=== PATIENT | female | born 1955 | race Caucasian/White ===

== ENCOUNTER 2018-02-09 08:39 | Emergency (ER) | payer MEDICAID ==
[~2018-02-09 08:39] MED LIST: ALBU8HFA PO; AMIT-50 PO; CHLO25CA10 PO; DULO-31 PO; HYDR1TAB PO; LOPE2CAP PO; ONDA4TAB6 PO; PANT40TA39 PO; SUCR1TAB28 PO
[2018-02-09] MEDS ORDERED: normal saline 1000ML IV soln IVB ONE (09:00)
[2018-02-09 09:31] LABS: BASOPHILS % (AUTO) 0.5 % (0-1); EOSINOPHILS # (AUTO) 0.1 X10'3 (0-0.9); EOSINOPHILS % (AUTO) 3.1 % (0-6); HEMATOCRIT 46.4 % (35.0-45.0); HEMOGLOBIN 15.6 g/dl (12.0-16.0); LYMPHOCYTES # (AUTO) 1.1 X10'3 (1.1-4.8); LYMPHOCYTES % (AUTO) 36.5 % (21-51); MEAN CORPUSCULAR HEMOGLOBIN 35.3 PG (27.0-31.0); MEAN CORPUSCULAR HGB CONC 33.7 % (33.0-36.5); MEAN CORPUSCULAR VOLUME 104.9 FL (78-98); MEAN PLATELET VOLUME 7.6 FL (7.4-10.4); MONOCYTES # (AUTO) 0.2 X10'3 (0-0.9); MONOCYTES % (AUTO) 7.3 % (2-12); NEUTROPHILS # (AUTO) 1.6 X10'3 (1.8-7.7); NEUTROPHILS % (AUTO) 52.6 % (42-75); PLATELET COUNT 105 X10'3 (140-440); RED BLOOD COUNT 4.43 X10'6 (4.20-5.60); RED CELL DISTRIBUTION WIDTH 15.6 % (11.5-14.5); WHITE BLOOD COUNT 3.1 X10'3 (4.5-11.0)
[2018-02-09 09:42] LABS: ALANINE AMINOTRANSFERASE 125 U/L (12-78); ALBUMIN 4.1 G/DL (3.4-5.0); ALBUMIN/GLOBULIN RATIO 1.2 (1.1-1.5); ALKALINE PHOSPHATASE 56 IU/L (46-116); ANION GAP 17 (8-16); ASPARTATE AMINO TRANSFERASE 150 U/L (10-37); BILIRUBIN,TOTAL 0.3 MG/DL (0.1-1.0); BLOOD UREA NITROGEN 16 MG/DL (7-18); BUN/CREATININE RATIO 28.6 (6.6-38.0); CALCIUM 8.7 MG/DL (8.5-10.1); CHLORIDE 107 MMOL/L (99-107); CREATININE 0.56 MG/DL (0.40-0.90); GLUCOSE 77 MG/DL (70-104); POTASSIUM 3.6 MMOL/L (3.5-5.1); SODIUM 145 MMOL/L (135-145); TOTAL CARBON DIOXIDE 21.2 MMOL/L (24-32); TOTAL PROTEIN 7.5 G/DL (6.4-8.2); eGFR > 90 ML/MIN
[2018-02-09 09:48] LABS: MAGNESIUM 1.9 MG/DL (1.5-2.4)
[2018-02-09 09:58] LABS: CLARITY,URINE CLEAR (Clear); COLOR,URINE YELLOW (Yellow); GLUCOSE, URINE NEGATIVE (Neg); KETONES,URINE TRACE mg/dl (Neg); LEUKOCYTE ESTERASE ,URINE NEGATIVE (Neg); NITRITES, URINE NEGATIVE (Neg); OCCULT BLOOD,URINE NEGATIVE (Neg); PROTEIN,URINE 30 mg/dl (Neg); UROBILINOGEN,URINE 0.2 E.U/dL (0.2-1.0)
[2018-02-09 10:07] VITALS: BP 114/86
[2018-02-09 10:14] LABS: UA COLLECTION TYPE CLN CATCH MIDSTREAM
[2018-02-09 10:16] LABS: BACTERIA,URINE NONE SEEN /HPF (Neg); MUCUS STRANDS NONE SEEN /LPF (Neg); RBC,URINE NONE SEEN /HPF (0-2); SQUAMOUS EPITHELIAL CELL,UR MODERATE /LPF (FEW); WBC,URINE 0-4 /HPF (0-4)
[2018-02-09 10:23] LABS: ETHANOL 0.309 GM/DL (0.0-0.010)
== END 2018-02-09 10:41 | disposition home or self-care (01) ==
LOC: ER 08:40
DX: E86.0 Dehydration (principal); F10.129 Alcohol abuse with intoxication, unspecified; R53.1 Weakness; Z56.0 Unemployment, unspecified; Z86.73 Personal history of transient ischemic attack (TIA), and cerebral infarction without residual deficits; Z88.2 Allergy status to sulfonamides; Z88.8 Allergy status to other drugs, medicaments and biological substances; Z79.899 Other long term (current) drug therapy; Y90.0 Blood alcohol level of less than 20 mg/100 ml
CPT/HCPCS: 36415; 71045; 80053; 80320; 81001; 83735; 83880; 84484; 85025; 93005; 96360; 99284; J7030

== ENCOUNTER 2018-05-24 11:35 | Emergency (ER) | payer MEDICAID ==
[~2018-05-24] VITALS: Ht 162.6 cm; Wt 47.0 kg
[2018-05-24] MEDS ORDERED: normal saline 1000ml 1,000 ML IV ONE ×3 (12:20→14:55)
--- NOTE | 2018-05-24 12:37 | NUR ---
pt to CT
--- NOTE | 2018-05-24 12:45 | NUR ---
Received call from Dr. Muñiz in regards to home health services, [facility], [facility] or [facility], patient does not have primary physician explained home health would not be an option, will speak with patient and family at bedside
--- NOTE | 2018-05-24 12:57 | NUR ---
getachew with case management was at bedside with pt, pt and friends refusing all services/info employment case manager offered pt, Dr Muñiz aware
[2018-05-24 13:01] LABS: BASOPHILS % (AUTO) 1.3 % (0-1); EOSINOPHILS # (AUTO) 0.1 X10'3 (0-0.9); EOSINOPHILS % (AUTO) 4.5 % (0-6); HEMATOCRIT 39.8 % (35.0-45.0); HEMOGLOBIN 13.3 g/dl (12.0-16.0); LYMPHOCYTES % (AUTO) 37.9 % (21-51); MEAN CORPUSCULAR HEMOGLOBIN 35.5 PG (27.0-31.0); MEAN CORPUSCULAR HGB CONC 33.5 g/dL (33.0-36.5); MEAN CORPUSCULAR VOLUME 105.9 FL (78-98); MEAN PLATELET VOLUME 7.1 FL (7.4-10.4); MONOCYTES # (AUTO) 0.4 X10'3 (0-0.9); MONOCYTES % (AUTO) 15.5 % (2-12); NEUTROPHILS # (AUTO) 1.1 X10'3 (1.8-7.7); NEUTROPHILS % (AUTO) 40.8 % (42-75); PLATELET COUNT 90 X10'3 (140-440); RED BLOOD COUNT 3.76 X10'6 (4.20-5.60); RED CELL DISTRIBUTION WIDTH 17.3 % (11.5-14.5); WHITE BLOOD COUNT 2.7 X10'3 (4.5-11.0)
--- NOTE | 2018-05-24 13:06 | NUR ---
PT IS SITTING UP ON EDGE OF BED, ALERT AND ORIENTED X3, WOULD LIKE TO EAT AND GO HOME, PT IS RECEIVING 1ST LITER NS W/O, UNABLE TO GIVE UA AT THIS TIME
[2018-05-24 13:12] LABS: INR 0.9 INR; PROTHROMBIN TIME 9.5 SECONDS (9.0-12.0)
[2018-05-24 13:16] LABS: ALANINE AMINOTRANSFERASE 83 U/L (12-78); ALBUMIN 3.5 G/DL (3.4-5.0); ALBUMIN/GLOBULIN RATIO 1.2 (1.1-1.5); ALKALINE PHOSPHATASE 76 IU/L (46-116); ANION GAP 9 (8-16); ASPARTATE AMINO TRANSFERASE 86 U/L (10-37); BILIRUBIN,TOTAL 0.2 MG/DL (0.1-1.0); BLOOD UREA NITROGEN 15 MG/DL (7-18); BUN/CREATININE RATIO 23.1 (6.6-38.0); CALCIUM 8.2 MG/DL (8.5-10.1); CHLORIDE 105 MMOL/L (99-107); CREATININE 0.65 MG/DL (0.40-0.90); GLUCOSE 71 MG/DL (70-104); POTASSIUM 3.5 MMOL/L (3.5-5.1); SODIUM 141 MMOL/L (135-145); TOTAL CARBON DIOXIDE 26.7 MMOL/L (24-32); TOTAL PROTEIN 6.4 G/DL (6.4-8.2); eGFR > 90 ML/MIN
--- NOTE | 2018-05-24 13:22 | NUR ---
Meet with patient and family, states that she was not interested in home health services, friends at bedside said that they all 3 take care of each other and have not benefited from home health in the past, offered a list of facilities that can provide bed bug exterminator care and other non medical agencies that can provide help with basic needs, house cleaning and meals, patient and two friends state they already take care of this and declined information
[2018-05-24 13:24] LABS: MAGNESIUM 1.7 MG/DL (1.5-2.4); PHOSPHORUS 3.7 MG/DL (2.3-4.5)
[2018-05-24 13:25] LABS: ETHANOL 0.352 GM/DL (0.0-0.010)
[2018-05-24] MEDS ORDERED: ondansetron/PF 4mg/2ml inj IV ONE (13:35)
[2018-05-24] MEDS ORDERED: cyanocobalamin 1,000 mcg/ml inj IM ONE (13:40)
[2018-05-24] MEDS ORDERED: thiamine 100mg/ml 2ml inj. IV ONE (13:40)
--- NOTE | 2018-05-24 15:00 | NUR ---
PT AGREED TO HAVE IN AND OUT CATH DONE SHE FEELS NO NEED TO URINATE, DR OLIVARES AWARE
--- NOTE | 2018-05-24 15:30 | NUR ---
PT HAS BEEN EDUCATED ALCOHOLISM, SHE VERBALIZED SHE DOES "DRINK TOO MUCH"
[2018-05-24 15:32] LABS: CLARITY,URINE CLEAR (Clear); COLOR,URINE YELLOW (Yellow); GLUCOSE, URINE NEGATIVE (Neg); KETONES,URINE NEGATIVE (Neg); LEUKOCYTE ESTERASE ,URINE NEGATIVE (Neg); NITRITES, URINE NEGATIVE (Neg); OCCULT BLOOD,URINE NEGATIVE (Neg); PROTEIN,URINE TRACE mg/dl (Neg); UROBILINOGEN,URINE 0.2 E.U/dL (0.2-1.0)
[2018-05-24 15:40] LABS: UA COLLECTION TYPE NON-SPECIFIED
[2018-05-24 15:42] LABS: BACTERIA,URINE FEW /HPF (Neg); RBC,URINE 0-2 /HPF (0-2); SQUAMOUS EPITHELIAL CELL,UR FEW /LPF (FEW); WBC,URINE 0-4 /HPF (0-4)
[2018-05-24 15:52] LABS: URINE AMPHETAMINE SCREEN NEGATIVE (Neg); URINE BARBITUATE SCREEN NEGATIVE (Neg); URINE BENZODIAZEPINES SCREEN NEGATIVE (Neg); URINE CANNABINOID SCREEN NEGATIVE (Neg); URINE COCAINE SCREEN NEGATIVE (Neg); URINE METHADONE SCREEN NEGATIVE (Neg); URINE OPIATE SCREEN NEGATIVE (Neg); URINE PHENCYCLIDINE SCREEN NEGATIVE (Neg)
[2018-05-24 16:23] VITALS: BP 104/60
[2018-05-25 12:07] LABS: TOTAL CELLS COUNTED 100
[2018-05-25 12:08] LABS: ANISOCYTOSIS 1+; PLATELET ESTIMATE DECREASED
== END 2018-05-24 16:23 | disposition home or self-care (01) ==
LOC: ER 11:36
DX: R53.1 Weakness (principal); F10.129 Alcohol abuse with intoxication, unspecified; F17.200 Nicotine dependence, unspecified, uncomplicated; F41.9 Anxiety disorder, unspecified; F32.9 Major depressive disorder, single episode, unspecified; Z88.1 Allergy status to other antibiotic agents; Z88.8 Allergy status to other drugs, medicaments and biological substances; Z86.73 Personal history of transient ischemic attack (TIA), and cerebral infarction without residual deficits; Z56.0 Unemployment, unspecified; Z79.899 Other long term (current) drug therapy
CPT/HCPCS: 36415; 70450; 71045; 80053; 80305; 80320; 81001; 83735; 84100; 84443; 84484; 85025; 85610; 93005; 96372; 96374; 96375; 99284; J2405; J3411; J3420